=== PATIENT | female | born 1965 | race Caucasian/White ===

== ENCOUNTER 2024-08-11 14:12 | Observation (INO) | payer BC, SELFPAY ==
[2024-08-11] VITALS (14 sets, daily range): BP systolic 108–161; BP diastolic 73–102; BMI 26.3; BMI 26.1
--- NOTE | 2024-08-11 07:58 | ED.GENMED ---
History of Present Illness
General
Chief Complaint: Chest Pain
Source: patient
Exam Limitations: none
Time Seen by Provider: 08/11/24 07:49
Nursing documentation reviewed up to this point in time: agreed with
History of Present Illness
History of Present Illness:
Patient is a 58-year-old female who presented to the ER with abrupt chest pain that started at 430 this morning while sitting on the toilet trying to have bowel movement. Patient complains of pain in the center of her chest worse with taking a deep
breath. She presents diaphoretic very uncomfortable appearing. She denies any radiation of pain. She is nauseous. She does feel short of breath the symptoms she has no past medical history. She vapes. She has no prior DVT PE history.
Sister had MD in her 40s.
She denies any history of reflux.
Past History
Past History
ED Past Medical History: None
ED Past Surgical History: None
Social History
Tobacco: Vaping
Alcohol: None
Drug: None
Personal:
Living: with family
Employment: Employed
Family History
Family History: CAD; Negative Diabetes, Hypertension, Early CAD or Asthma
Review of Systems
Review of Systems
Allergies reviewed?: Yes
All Other Systems: ROS reviewed and negative except as documented in HPI and ROS
Constitutional: Reports no symptoms
Respiratory: Reports trouble breathing
Cardiac: Reports chest pain
ABD/GI: Reports nausea; Denies abdominal pain or vomiting
Musculoskeletal: Reports no symptoms; Denies neck pain or back pain
Skin: Reports no symptoms
Psychiatric: Reports no symptoms
Phy Exam
General Physical Exam
General Presentation: no apparent distress
General age: appears stated age
General Skin: warm and dry
General Habitus: normal
General Mental: alert
General Hydration: appears well hydrated
Neurological Exam
Neurological Exam: alert and oriented x3
Musculoskeletal Exam
Musculoskeletal Exam: full ROM
Skin Exam
Skin Exam: normal color and warm/dry
Psychiatric Exam
Psychiatric Exam: normal mood/affect
Scores
Heart Score for Chest Pain Patients
STEMI patient?: Not applicable
Course
Orders/Labs/Results
Orders:
Orders
08/11/24 07:31
Electrocardiogram (*1) Urgent
Reason for Study: Chest Pain
EKG- Treatment ONCE
08/11/24 07:54
Morphine Sulfate 4 mg .ROUTE .STK-MED ONE
Ondansetron Injectable [Zofran] 4 mg .ROUTE .STK-MED ONE
08/11/24 07:55
CT Chest Angio W/wo Iv Contras Urgent
Comment:
Reason For Exam: abrubt severe cp
IV Insert/Care/Rem.- Treatment PRN
08/11/24 07:57
C-Reactive Protein Urgent
Comment: ADD ON
Complete Blood Count/With Diff Urgent
Comprehensive Metabolic Panel Urgent
Erythrocyte Sed Rate Urgent
Comment: ADD ON
Lipase Urgent
Troponin I Urgent
08/11/24 08:00
0.9% Sodium Chloride 1000 ml [Nss] 1,000 ml IV BOLUS
Morphine Sulfate 4 mg IV NOW STA
08/11/24 08:01
Ondansetron Injectable [Zofran] 4 mg IV NOW STA
08/11/24 08:17
EKG [Electrocardiogram (*1)] Stat
Reason for Study: Bradycardia / Tachycardia
08/11/24 08:18
EKG- Treatment ONCE
08/11/24 08:30
Famotidine [Pepcid] 20 mg IV NOW STA
08/11/24 10:17
Echo 2D MMode Color/Doppler Urgent
Reason for Study: cp
Cardiology Consult: Scheiring, Romi
Mag Hydrox/Al Hydrox/Simeth [Maalox] 30 ml Phenobarb/Hyoscy/Atropine/Scop [] 10 ml PO NOW
08/11/24 10:18
COVID-19 Antigen Urgent
Source: Nasal Swab
Influenza A+B Rapid Molecular Urgent
SHAHZAD Source: Nasal Swab
Specimen Description:
08/11/24 10:36
Mag Hydrox/Al Hydrox/Simeth [Maalox] 30 ml .ROUTE .STK-MED ONE
Phenobarb/Hyoscy/Atropine/Scop [] 10 ml .ROUTE .STK-MED ONE
08/11/24 11:05
Add On- LAB Routine
Tests Added?: ESR, CRP
08/11/24 11:33
Troponin I Routine
Influenza A+B Rapid Molecular Routine
SHAHZAD Source: [facility]
Specimen Description:
08/11/24 11:39
Electrocardiogram (*1) Stat
Reason for Study: Other
Other Reason for Exam: chest pain
EKG- Treatment ONCE
08/11/24 11:51
EKG [Electrocardiogram (*1)] Stat
Reason for Study: Bradycardia / Tachycardia
EKG- Treatment ONCE
08/11/24 12:41
US Abdomen Complete/Upper Urgent
Comment:
Reason For Exam: upper abd /epigastric/chest pain
08/11/24 13:30
HYDROmorphone [Dilaudid] 0.5 mg IV Q4HPRN PRN
Ketorolac [Toradol] 30 mg IV NOW STA
Lorazepam [Ativan] 0.5 mg IV NOW STA
08/11/24 13:35
0.9% Sodium Chloride [Nss (Preservative Free)] 0.25 ml IV NOW STA
08/11/24 13:53
Admit/Transfer Patient As Directed
Co-Sign Provider:
Level of Care: Observation services
Assign to:: Telemetry
Physician / Group: amy castillo
Diagnosis: cp unclear poss viral pericariditis/takusobo/myocarditis
Reason for Telemetry: Chest Pain syndromes
Date to Stop Telemetry: 08/13/24
Time to Stop Telemetry: 11:00
Reason for Hospitalization: cp unclear poss viral pericariditis/takusobo/myocarditis
Code Status As Directed
Resuscitation Status: Full Code
CARDIOLOGY CONSULT Routine
Consulting Provider: Romi Coker
Was physician already notified: Yes
Reason for consult: chest paiin recent uri fever
08/11/24 13:55
PRN Pain Medication Management As Directed
May give lesser potent ordered pain med per pt: Yes
preference::
Protocol:: Medication orders for pain may be administered in a
manner that supports deferring to patient preference
when the pt is:
- Requesting an ordered lesser potent pain medication.
Least to most potent pain medications are defined
as: acetaminophen < NSAID < tramadol < opioids
(morphine, oxycodone, hydromorphone).
- Requesting a lesser dose of the same medication IF
ORDERED.
- Requesting a less intrusive route of administration
if both routes are prescribed by the provider (PO <
IV).
08/11/24 14:11
Influenza A+B Rapid Molecular Urgent
SHAHZAD Source: Nasal Swab
Specimen Description:
08/11/24 18:00
0.9% Sodium Chloride [Nss (Preservative Free)] 0.5 ml IV Q4HPRN PRN
Lorazepam [Ativan] 1 mg IV Q4HPRN PRN
08/11/24 20:00
Ketorolac [Toradol] 30 mg IV Q6HPRN PRN
08/13/24 11:00
DC Protocol for Telemetry ONCE
Abnormal Lab Results
08/11/24
07:57
WBC 11.7 H 10^3/uL
(4.8-10.8)
MCH 31.5 H pg
(27.0-31.0)
Abs Immat Gran (auto) 0.1 H 10^3/uL
(0-0.05)
Absolute Neuts (auto) 8.7 H 10^3/uL
(1.4-6.5)
ESR 35 H mm/hour
(0-20)
Glucose 152 H mg/dl
(70-99)
Calcium 10.3 H mg/dl
(8.4-10.2)
C-Reactive Protein 21.40 H mg/L
(0.0-10.00)
08/11/24 07:57
08/11/24 07:57
Vital Signs
Initial and Last Documented VS:
Initial Vital Signs
Pulse Resp BP Pulse Ox
66 16 126/91 100
08/11/24 07:37 08/11/24 07:37 08/11/24 07:37 08/11/24 07:37
Last Documented Vital Signs
Temp Pulse Resp BP Pulse Ox
97.5 F 48 20 145/75 94
08/11/24 09:55 08/11/24 14:15 08/11/24 14:15 08/11/24 14:00 08/11/24 14:15
Clay Dry Press Helper consulted with Physician
Clay [employer] Press Helper consulted with physician?: Yes
Name of Physician Consulted: Negar
MDM/Problems Addressed
Differential Diagnosis Includes:
Not limited to aortic dissection, ACS, refux gastritis , PE
MDM/Problems Addressed:
As documented patient is a 58-year female who presented with anterior chest discomfort that started at 4: 30 this morning while sitting on the toilet. She presents very uncomfortable diaphoretic. EKG done in triage with no acute ST elevation or
acute findings. Patient's heart rate is in the 60s. On patient's arrival and treatment area was called to room. She is very uncomfortable diaphoretic complains of pain to the anterior chest worse with deep breath. No cardiac history. No family
history of DVT PE aneurysm. IV line was inserted patient was medicated for pain given nausea medicine fluids. ED physician called to bedside. Stat CTA chest ordered.
In review of records pt was here in 2021 for similar episode
CTA negative for dissection or aneurysm. Patient still complains of discomfort but seems a little more comfortable after morphine and Zofran. She still is diaphoretic. She was given Pepcid and still feels pain intermittent. She feels pain is
coming and going. Abdomen soft nontender. neg trop nml lipase nml lfts non tender over ruq
Patient was evaluated by cardiology and bedside echo was done and normal. Patient has had episodes of bradycardia as low as 30 9 running in the 40s. Blood pressure stable. As discussed with cardiology attending will check ultrasound however
patient will require admission for further evaluation . Pt continues with pain and diaphoresis.
Ultrasound negative. Patient mended to the hospital service for further evaluation and workup.
*Radiology
Radiology exam reviewed: radiology read reviewed
*Pulse Oximetry
Patient hypoxic: no
*EKG
Interpreted by ED Provider?: Yes
Interpretation: normal
Heart Rate: 60
Rate: normal
Rhythm: sinus
Ischemia: other (Repeat EKG done shows a heart rate of 45 however no other acute changes)
*Critical Care Note
Total Time (30-74mins, 75-104mins- exclusive of procedures): Not Applicable
Patient Management
Discussion with other providers: Marine Railway Operator (cardiology DR Coker )
ED Attending Note
-
Portions of this chart may have been created with voice recognition software.� Occasional wrong word or��sound alike� substitutions may have occurred due to the inherent limitations of voice recognition software.
Discharge Plan
Departure
Patient Disposition: Admit
Date of Disposition: 08/11/24
Time of Disposition: 12:53
Admit to: Telemetry
Admit to doctor: hospitalist
Presentation/result/management discussed w/ accepting MD/DO: Hospitalist
Condition: Fair
Covid-19: Not Applicable
Discharge Problem:
Chest pain
Interventions
Interventions:
*Risk Screen - Suicide Last Done: 08/11/24 07:39
*General Assessment Last Done: 08/11/24 08:22
*Neglect/Abuse Screening Last Done: 08/11/24 07:39
*ED COVID-19 Vaccine History Last Done: 08/11/24 08:24
*Nursing Disposition Last Done: 08/11/24 15:19
ED- Cardiac Assessment Last Done: 08/11/24 10:30
[2024-08-11 08:09] LABS: Hemoglobin 14.6 g/dL (12.0-16.0); Mean Corp Hgb Conc. 35.6 g/dL (33.0-37.0); Mean Corpuscular Hgb 31.5 pg (27.0-31.0); Mean Corpuscular Volume 88.4 fL (81.0-99.0); Mean Platelet Volume 8.6 fL (7.4-10.4); Platelet Count 331 10^3/uL (130-400); Red Blood Cell Count 4.64 10^6/uL (4.20-5.40); Red Cell Dist. Width 12.3 % (11.5-14.5); White Blood Cell Count 11.7 10^3/uL (4.8-10.8)
[2024-08-11] MEDS: MORPHINE SULFATE 4 MG IV (08:13)
[2024-08-11] MEDS: ZOFRAN 4 MG IV (08:15)
[2024-08-11] MEDS: NSS 1000 IV ×2 (08:15→16:00)
[2024-08-11 08:20] LABS: ALT (SGPT) 12 U/L (0-35); AST (SGOT) 20 U/L (14-36); Albumin 4.8 g/dl (3.5-5.0); Alkaline Phosphatase 108 U/L (38-126); Blood Urea Nitrogen 16 mg/dl (7-17); Calcium 10.3 mg/dl (8.4-10.2); Carbon Dioxide 24 mmol/L (22-30); Chloride 105 mmol/L (98-107); Estimated Creatinine Clearance 76 ml/min; Glucose 152 mg/dl (70-99); Lipase 144 U/L (23-300); Potassium 4.3 mmol/L (3.5-5.1); Sodium 144 mmol/L (135-145); Total Bilirubin 0.4 mg/dl (0.2-1.3); Total Protein 7.9 g/dl (6.3-8.2); eGFR > 60.00
[2024-08-11 08:26] LABS: % Basophils 0.4 % (0-2); % Eosinophils 0.9 % (0-6); % Immature Granulocytes 0.4 % (0-0.5); % Lymphocytes 20.9 % (20.5-51.1); % Monocytes 3.4 % (1.7-9.3); Absolute Basophils 0.1 10^3/uL (0-0.2); Absolute Eosinophils 0.1 10^3/uL (0-0.7); Absolute Immature Granulocytes 0.1 10^3/uL (0-0.05); Absolute Lymphocytes 2.5 10^3/uL (1.2-3.4); Absolute Monocytes 0.4 10^3/uL (0.1-0.6); Absolute Neutrophils 8.7 10^3/uL (1.4-6.5); Nucleated Red Blood Cells % 0 %
[2024-08-11 08:30] LABS: Troponin I < 0.012 ng/ml
[2024-08-11] MEDS: PEPCID 20 MG IV (08:36)
[2024-08-11] MEDS: MAALOX 30 PO (10:39)
[2024-08-11 10:40] LABS: COVID-19 Antigen Negative (Negative)
--- NOTE | 2024-08-11 11:05 | CON.CAR ---
Addendum entered and electronically signed by Romi Coker DO 08/11/24 17:43:
I saw and examined the patient.
The Public Health Epidemiologist's note was reviewed and I agree with the note.
Comment: Patient was seen and examined in ED room 7 with her at bedside. Stephanie is a 58 year old female with PMH of HLD who presented to [facility] for evaluation of chest/epigastric pain. She woke up this AM and was feeling well, however when
she went to have a bowel movement, suddenly developed significant central chest pain with associated nausea, diaphoresis, and SOB. She notes the pain is severe, 7/10 in severity. She previously had an episode similar to this in 2021 with chest pain
and diaphoresis. Workup at that time was benign. She reports she has not had any significant/severe similar symptoms until this AM. In ER, initial troponin negative, EKG SR with sinus arrhythmia. Telemetry is sinus bradycardia in the 40-70s without
high degree AVB or pauses. She was given morphine, pepcid, GI cocktail, and zofran. She reports this has helped calm her down, however has not had any improvement in her pain. She does not take any daily medications. She does note that approximately
1 week ago she had a viral illness and had fevers up to 102F but she was feeling better and denies further fevers or rash. COVID was negative. She is on no prescribed or OTC medications. Also under increased stress at home as her father
last week.
General: Lying on her left side, clammy/diaphoretic and appears on well.
Neck: Negative JVD
Heart: Regular, positive S1/S2, No murmur. No rub. No chest wall ecchymosis or rash
Lungs: CTA b/l, negative wheezes/rales/rhonchi
Abd: Positive BS, NT/ND, neg rebound/rigidity/guarding
Ext: No edema
Neuro: nonfocal
Plan:
Constant epigastric/lower chest pain since around 430 this am that started this morning while trying to have a bowel movement.
-Cardiac troponin negative x 2
-Twelve-lead EKG sinus bradycardia without acute ischemic changes or EKG signs suggesting pericarditis.
-CTA of the chest without acute pathology in the lungs and no pericardial effusion. No PE or aortic pathology.
-2D echocardiogram with normal biventricular size and systolic function and no hemodynamically significant valve pathology. No pericardial effusion
-Lipase and LFTs within normal limits
-Mildly elevated WBC and mildly elevated nonspecific inflammatory markers with reported viral illness negative for COVID last week. COVID assay negative this admission. Influenza assay pending
-Fortunately, workup so far does not support diagnosis of acute coronary syndrome, Takotsubo's, myocarditis or even pericarditis.
-Discussed with the ED to obtain abdominal imaging
-Could try empiric NSAIDs such as Toradol
-Continue to monitor on telemetry
Smoking/vaping history
-Prior cigarette smoker 1.5 pack/day x 33 years quit 2018 and switched to vaping
-Cessation advised
ADHD
-Patient and denied to me that she is on any medication.
-Will need to verify medication dosing regimen
Original Note:
Consultation
Consultation Request
Date/Time Consultation Requested: 08/11/2024
Date/Time Consultation Performed: 08/11/2024 at 1045
Requesting Provider: Ene MARTINEZ
Performing Provider: Bonnie Benoit PA-C for Dr. Coker
Reason for Consultation: Chest pain
Medical History
-
History of Present Illness:
HPI: Stephanie is a 58 year old female with PMH of HLD who presented to [facility] for evaluation of chest pain. She woke up this AM and was feeling well, however when she went to have a bowel movement, suddenly developed significant central chest pain
with associated nausea, diaphoresis, and SOB. She notes the pain is severe, 7/10 in severity. She previously had an episode similar to this in 2021 with chest pain and diaphoresis. Workup at that time was benign. She reports she has not had any
significant/severe similar symptoms until this AM. In ER, initial troponin negative, EKG SR with sinus arrhythmia. HR in the 40s. She was given morphine, pepcid, GI cocktail, and zofran. She reports this has helped calm her down, however has not had
any improvement in her pain. She does not take any daily medications. She does note that approximately 1 week ago she had a viral illness and had fevers up to 102F. Also under increased stress at home as her father last week.
PMH:
Hyperlipidemia
Former tobacco abuse
Family h/o CAD
Past Medical History
Past Medical History: Other (In HPI)
Past Surgical History: Other ([place] tooth extraction)
Social History
Tobacco: Vaping (Former smoker, current vape use)
Alcohol: Occasional (rare)
Personal:
Living: With Family
Employment: Employed
Family History
Family History: Early CAD, Cancer and Diabetes
Allergies / Home Medications
Allergy/AdvReac Type Severity Reaction Status Date / Time
No Known Allergies Allergy Verified 05/29/22 08:36
�Medication �Instructions �Recorded �Confirmed �Type
dextroamphetamine-amphetamine 20 20 mg PO DAILYPRN PRN ADHD symptoms 05/29/22 08/11/24 History
mg tablet (Adderall)
Review of Systems
-
History Source: Patient and Family ( at bedside)
All other systems: Negative unless noted
Physical Exam
Vital Signs
Temp Pulse Resp BP Pulse Ox
97.5 F 47 19 150/94 97
08/11/24 09:55 08/11/24 10:00 08/11/24 10:00 08/11/24 10:00 08/11/24 10:00
Lab Results
08/11/24 07:57
08/11/24 07:57
Troponin I < 0.012 ng/ml 08/11/24 07:57
Physical Exam
General: Well Developed, Well Nourished and Sweats
HEENT: Normocephalic, Anicteric and Moist Mucous Membranes
Respiratory: Clear and Non Labored Respirations
Cardiac: S1/S2 and Regular Rhythm
Musculoskeletal: No Clubbing, No Cyanosis and No Edema
Neuro: AO x 3 and Nonfocal/Grossly Intact
Psych: Calm
Impression / Plan
-
PCP: Dr. Bunch
Engineer Operations And Maintenance: Dr. Francis, last seen 07/2022
Impression:
Presented with chest pain, diaphoresis
Nausea
Hyperlipidemia
Former tobacco abuse
Family h/o CAD
Stress echo 06/22/2022: Normal stress echo with normal hemodynamic response to exercise. Low risk stress test.
Echo 06/09/2022: EF 60-65%, no RWMA, no significant valvular disease
Echo 08/11/2024: Study pending
Plan:
-Presented with central, nonradiating chest discomfort and diaphoresis that started this AM while trying to have a bowel movement.
-Pain has been persistent since that time. No improvement with zofran, morphine, GI cocktail, or pepcid.
-Initial troponin negative. Repeat troponin ordered. Await results.
-Check echo. Prior echo in 2021 with preserved EF and no significant valvular disease.
-Check ESR, CRP. Noted recent viral illness last week w/ temp up to 102F. Afebrile in ER.
-CTA of chest overall unremarkable. No pneumonia, no dissection.
-EKG reviewed, SR with no acute ischemic changes.
-Has been under increased stress w/ her father passing away last week.
-Covid testing negative.
-Prior OP stress testing negative in 2021.
-Further recommendations to be made pending results of echo and labwork.
HPI: Stephanie is a 58 year old female with PMH of HLD who presented to [facility] for evaluation of chest pain. She woke up this AM and was feeling well, however when she went to have a bowel movement, suddenly developed significant central chest pain
with associated nausea, diaphoresis, and SOB. She notes the pain is severe, 7/10 in severity. She previously had an episode similar to this in 2021 with chest pain and diaphoresis. Workup at that time was benign. She reports she has not had any
significant/severe similar symptoms until this AM. In ER, initial troponin negative, EKG SR with sinus arrhythmia. HR in the 40s. She was given morphine, pepcid, GI cocktail, and zofran. She reports this has helped calm her down, however has not had
any improvement in her pain. She does not take any daily medications. She does note that approximately 1 week ago she had a viral illness and had fevers up to 102F. Also under increased stress at home as her father last week.
Data Reviewed
-
EKG: Tracing Personally Visualized and interpreted
CT Scan: Report Reviewed by me
Labs: Labs Reviewed by me
Old Records: Reviewed
[2024-08-11 11:57] LABS: Erythrocyte Sed Rate 35 mm/hour (0-20)
[2024-08-11 12:17] LABS: Troponin I < 0.012 ng/ml
--- NOTE | 2024-08-11 13:01 | HPS.HSE ---
Addendum entered and electronically signed by JUAN Holcomb 08/11/24 14:31:
Pt reports Cp went from 04/16 to 12/15 after Iv toradol and Iv ativan . It also improved with moving and taking a deep breath
Original Note:
Family Physician
-
Family Physician: NOT KNOW UNKNOWN - PT DOES
Chief Complaint
-
Right midsternal chest pain with diaphoresis, prior URI with temp
History of Present Illness
58-year-old female complaining of midsternal chest pain at 4:30 AM while sitting on the toilet trying to have a bowel movement.. She reports she normally has a bowel movement every day that is long and thin but had not had a bowel movement in the
past few days like her normal. She does report several times a week after having a bowel movement she feels this midsternal chest pain along with diaphoresis but it typically resolves. Today she came to the ER because symptoms were persisting. She
reports the pain worsens with taking a deep breath and moving. She was diaphoretic in the ER along with nauseous. She does report having a fever several days ago at home from 08/07 to 08/08/2024 with peak temperature of 102F also associated with
bodyaches, sore throat and vomiting a few times. She reports prior 3 weeks ago sinus congestion, runny nose, sneezing which progressed to the fever and bodyaches. She also reports chronic anxiety for which she has not treated she reports recently
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 She also lost her father last week. She does report similar episodes in May 2022, although does not recall any major life events or stressors at that time. She had a negative
COVID test here unable to test for flu and viral panel due to multiple attempts in ER. She denies current fever, chills, sore throat, headache, shortness breath, vomiting, diarrhea, urinary symptoms, sick contacts, no joint pain or swelling.. She
had stat CTA that was negative for dissection. She was given morphine, GI cocktail and Pepcid which did not help the chest pain. She was noted to be bradycardic with heart rate as low as 39 bpm. She had similar episode of chest pain in 2021 with
negative echo by cardiology [facility]. She has past medical history of nicotine vaping, cigarette smoker 1.5 pack/day x 33 years quit in 2018 and switched to vaping, reported anxiety not officially diagnosed, chronic right lower lobe pulmonary nodule 4.[address] chest from 05/10/2022, chronic bradycardia, colonic benign polyps via colonoscopy, diverticulosis sigmoid colon
Medical History
Past Medical History
Past Medical History: Reports Other
Additional Past Medical History:
nicotine vaping,
cigarette smoker 1.5 pack/day x 33 years quit in 2018 and switched to vaping
reported anxiety not officially diagnosed
chronic right lower lobe pulmonary nodule 4.5 mm , and 3 mm subpleural nodule anterior right upper lobe on CT chest from 05/10/2022
chronic bradycardia
colonic benign polyps via colonoscopy February 2022
Colonoscopy with diverticulosis sigmoid colon February 2022
Past Surgical History: Reports Other
Additional Past Surgical History:
colonic benign polyps via colonoscopy February 2022
Colonoscopy with diverticulosis sigmoid colon February 2022
Social History
Tobacco: Vaping
Alcohol: None
Drug: None
Personal:
Living: With Family ( Aditya)
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
Family History
Family History: Early CAD (Sister [facility] age 40s)
Allergies / Home Medications
Allergies reflects when Allergies were last updated in [facility].
Home Medications with original date entered in [facility]
Allergy/Medication List:
Allergies
Allergy/AdvReac Type Severity Reaction Status Date / Time
No Known Allergies Allergy Verified 05/29/22 08:36
Home Medications
dextroamphetamine-amphetamine 20 mg tablet (Adderall) 20 mg PO DAILYPRN PRN ADHD symptoms 05/29/22
Review of Systems
-
History Source: Patient and Family (Aditya)
A 12 point ROS was completed and negative except as noted: Yes
Constitutional: Denies Fever, Weight Loss, Fatigue or Chills
EENT: Denies Sore Throat or Runny Nose
Respiratory: Reports Cough (Chronic); Denies Hemoptysis or Trouble Breathing
Cardiac: Reports Chest Pain (Right midsternal) and Diaphoresis; Denies Palpitations or Syncope
Abdomen/GI: Reports Nausea and Constipated (Had constipation last 30 days did have small bowel movement this a.m. 08/11/2024); Denies Abdominal Pain, Vomiting or Diarrhea
: Denies Dysuria, Frequency, Flank Pain, Incontinence, Difficulty Voiding or Urgency
Musculoskeletal: Denies Joint Pain, Joint Swelling, Muscle Pain or Edema
Skin: Denies Itching or Rash
Neurological: Denies Dizzy, Headache or Weakness
Endocrine: Reports No Symptoms
Hematologic/Lymphatic: Reports No Symptoms
Psych: Reports Anxiety
Physical Exam
Vital Signs
Vital Signs
Temp Pulse Resp BP Pulse Ox
97.5 F 41 16 161/91 99
08/11/24 09:55 08/11/24 12:00 08/11/24 12:00 08/11/24 12:00 08/11/24 12:00
Physical Exam
General: Conversant, Pain and Other (Diaphoretic); No Fever, Chills or Slurred Speech
HEENT: NormoCephalic, Anicteric, Moist mucous membranes, PERRLA, [place] Conjunctivae, No Ptosis and Neck Nontender; No Pharyngeal Erythema
Respiratory: Wheezes (Bilateral upper lung renteria); No Rales, Rhonchi or Crackles
Cardiac: S1/S2 and Bradycardia; No Murmur, Rub, Gallop, Peripheral Edema, Calf Tenderness, JVD or Carotid Bruits
Breast: Deferred by me
GI: Soft, Non Tender, Non Distended, Normal Bowel Sounds, No Hepatosplenomegaly and No Hernias
Rectal: Deferred by Provider
Genito-urinary: Deferred by me
Musculoskeletal: No Clubbing, No Cyanosis and No Edema
Skin: Warm and Other (Diaphoretic); No Rash or Jaundice
Neuro: AO x 3 (Appears anxious), No Motor Deficits, Nonfocal/grossly intact, Cranial Nerves Intact and No Sensory Deficits; No Slurred Speech, Facial Droop, Tremors or Sedated
Psych: Anxious
Laboratory Results
-
08/11/24 07:57
08/11/24 07:57
Laboratory Results
Total Bilirubin 0.4 mg/dl (0.2-1.3) 08/11/24 07:57
AST 20 U/L (14-36) 08/11/24 07:57
ALT 12 U/L (0-35) 08/11/24 07:57
Alkaline Phosphatase 108 U/L (38-126) 08/11/24 07:57
Troponin I < 0.012 ng/ml 08/11/24 11:33
Lipase 144 U/L (23-300) 08/11/24 07:57
Impression/Plan
-
Impression/plan:
Observation telemetry
#Chest pain unclear etiology concern for possible Viral myocarditis/Pericarditis/Takotsubo cardiomyopathy
Had viral URI 1 week ago with fevers peak 102 from 08/07 - 08/08/2024.
-Recent stress her father 1 week ago
-COVID-negative
-we will repeat flu swab as prior to work coming up and valid
-Will check possible RSV pending ID recommendation
Troponin x 2 levels <0.012
-ESR elevated 35, CRP elevated 21.4
-IV Toradol 30 mg every 6 hours as needed pain,Tylenol prn, Dilaudid as needed
-Consult [facility]ology
2D echo 08/11/2024: EF 60 to 65%, no wall abnormalities, no valvular disease.
EKG: Sinus bradycardia 57 bpm QTc 439 MS no significant change from earlier today
#Acute on chronic anxiety
-Will give IV Ativan now and as needed
-I discussed with patient to follow-up with PCP regarding her daily chronic anxiety
#Bradycardia known
Heart rate 39 bpm - 57 bpm
-Per vitals 05/29/2022 heart rate was 51-56 bpm
#Right lower lobe pulmonary nodule 4.5 mm and 3 mm subpleural nodule anterior right upper lobe on CT chest was found on 05/10/2022
-Today CT chest reports unchanged from prior exam in 2021
-Patient did follow-up with pulmonary
#Nicotine vape use daily
#Prior cigarette smoker 1.5 pack/day x 33 years quit 2017 and switched to vaping
-Cessation advised
#ADHD
Patient on Adderall 20 mg daily as needed
#Diverticulosis sigmoid colon on colonoscopy 02/07/2021
Benign colonic polyps via colonoscopy 2020
DVT prophylaxis
-Subcu heparin
Full code
[2024-08-11] MEDS: ATIVAN 0.5 MG IV (14:02)
[2024-08-11] MEDS: TORADOL 30 MG IV (14:02)
[2024-08-11] MEDS: NSS (PRESERVATIVE FREE) 0.25 ML IV (14:03)
--- NOTE | 2024-08-11 14:15 | W.PN.UPDATE ---
Update Note
Progress Note Update
This is an addendum to the H&P written by Sherrell Rose on 08/11/2024.� Patient seen and examined independently with [employer].
58-year-old female past medical history of known bradycardia, hyperlipidemia, presenting for severe substernal sharp chest pain with pleuritic component associate with nausea, diaphoresis and shortness of breath.� 1 week ago she had URI with fever
up to 102 with resolving symptoms.� Father last week.� Patient has chest pain like this since 2021 often few times a week.
Initial troponin negative.� EKG shows sinus bradycardia.� CT angio of chest shows no evidence of aortic dissection or aneurysm.� Labs show leukocytosis.� Echo shows normal findings.� COVID-negative.� Flu attempted to be checked 3 times but results
invalid.� CRP elevated at 21.
Unclear etiology of chest pain.� Unstable angina possible however EKG showing sinus bradycardia without any ischemic changes.� Given elevated inflammatory markers, recent URI last week acute pericarditis/Takotsubo cardiomyopathy can be considered
however echo unremarkable.� Sweating but afebrile.� There appears to be psychosomatic component of pain.
Toradol, Dilaudid for pain.� Ativan for anxiety.� Cardiology following.� Will contact lab to see if influenza can be rechecked.
--- NOTE | 2024-08-11 16:39 | PTCARENOTE ---
Pt brought to room 406-1 from ED. Pt able to ambulate from stretcher into bed w/o issue. Pt arrived on 2L oxygen, but found to be 99% room air so O2 discontinued. Pt cooperative but disinterested in discussing plan of care, barely answering
admission questions, just wants to sleep. She reports mild substernal discomfort (2/10) at this time.
--- NOTE | 2024-08-11 17:50 | PTCARENOTE ---
Pt woke from sleep and vomited x 1 watery emesis. Pt reports feeling much better after vomiting. Chest pain resolved. Pt is now much more awake/alert/talkative.
[2024-08-12 03:32] VITALS: BP 118/71
[2024-08-12] MEDS: NSS 1000 IV (07:27)
[2024-08-12 07:28] LABS: % Basophils 0.4 % (0-2); % Eosinophils 0.8 % (0-6); % Immature Granulocytes 0.5 % (0-0.5); % Lymphocytes 25.2 % (20.5-51.1); % Monocytes 8.1 % (1.7-9.3); Absolute Eosinophils 0.1 10^3/uL (0-0.7); Absolute Immature Granulocytes 0.1 10^3/uL (0-0.05); Absolute Lymphocytes 2.3 10^3/uL (1.2-3.4); Absolute Monocytes 0.7 10^3/uL (0.1-0.6); Absolute Neutrophils 5.9 10^3/uL (1.4-6.5); Hematocrit 35.4 % (37.0-47.0); Hemoglobin 12.6 g/dL (12.0-16.0); Mean Corp Hgb Conc. 35.6 g/dL (33.0-37.0); Mean Platelet Volume 8.9 fL (7.4-10.4); Nucleated Red Blood Cells % 0 %; Platelet Count 327 10^3/uL (130-400); Red Blood Cell Count 4.07 10^6/uL (4.20-5.40); Red Cell Dist. Width 12.5 % (11.5-14.5); White Blood Cell Count 9.1 10^3/uL (4.8-10.8)
[2024-08-12 07:31] VITALS: BP 128/82
[2024-08-12 07:36] LABS: ALT (SGPT) 11 U/L (0-35); AST (SGOT) 17 U/L (14-36); Albumin 3.9 g/dl (3.5-5.0); Alkaline Phosphatase 74 U/L (38-126); Blood Urea Nitrogen 15 mg/dl (7-17); Calcium 9.3 mg/dl (8.4-10.2); Carbon Dioxide 28 mmol/L (22-30); Chloride 104 mmol/L (98-107); Estimated Creatinine Clearance 76 ml/min; Glucose 99 mg/dl (70-99); HDL Cholesterol 50 mg/dl; LDL Cholesterol, Calculated 155 mg/dl; Potassium 4.1 mmol/L (3.5-5.1); Sodium 144 mmol/L (135-145); Total Bilirubin 0.2 mg/dl (0.2-1.3); Total Cholesterol 234 mg/dl (50-199); Total Protein 6.5 g/dl (6.3-8.2); Triglyceride 146 mg/dl (10-149); Very Low Density Lipoprotein 29 mg/dl (0-30); eGFR > 60.00
[2024-08-12] MEDS: PEPCID 20 MG PO (08:03)
--- NOTE | 2024-08-12 09:49 | W.PN.HOSP.TC ---
Addendum entered and electronically signed by Nivia Song MD 08/12/24 13:58:
VTE workup revealed small R PE - dc on Eliquis. OP hematology evaluation as not clearly a provoked PE.
Original Note:
Today's Communication/Plan
-
VTE workup
follow Cards recs
continue empiric PPI and pain control
Assessment / Plan
Assessment / Plan
Assessment:
Central chest pain
Known sinus bradycardia
- CT-A negative for aortic pathology, no evaluate for PE. Will obtain CT-PE study and also Dopplers
- trop x 2 negative. Echo unremarkable. No EKG evidence of ischemic or acute pericarditis
- recent viral URI - resolved. No evidence of PNA on CT. COVID/Flu negative
- Recent stressor of father passing away, could have anxiety component.
- LFTs and US unremarkable. ? Gastritis vs heartburn related?. continue empiric H2 darrick if VTE workup negative. OP GI referral.
- continue Toradol/prn pain control
Acute anxiety on chronic anxiety
- Recent stressor of father passing away, could have anxiety component.
- prn Ativan
- PCP f/u
Right lower lobe pulmonary nodule 4.5 mm and 3 mm subpleural nodule anterior right upper lobe on CT chest was found on 05/10/2022
- Today CT chest reports unchanged from prior exam in 2021
- Patient did follow-up with pulmonary
Nicotine vape use daily
Prior cigarette smoker 1.5 pack/day x 33 years quit 2017 and switched to vaping
- cessation advised
ADHD
- patient on Adderall 20 mg daily as needed
Diverticulosis sigmoid colon on colonoscopy 02/07/2021
Benign colonic polyps via colonoscopy 2020
DVT prophylaxis: SC heparin
Code: Full
Anticipated Discharge: Within 24 hours
Subjective/Interval History
-
Date of Service: August 12, 2024
chest pain stable to improving
no fevers/SOB
Objective Data
-
Labs:
Laboratory Results
08/12/24
06:39
WBC 9.1
Hgb 12.6
Hct 35.4 L
Plt Count 327
Sodium 144
Potassium 4.1
Chloride 104
Carbon Dioxide 28
BUN 15
Creatinine 0.8
Glucose 99
Calcium 9.3
Total Bilirubin 0.2
AST 17
ALT 11
Alkaline Phosphatase 74
Vital Signs:
Vital Signs
Temp Pulse Resp BP Pulse Ox
98.1 F 75 20 128/82 96
08/12/24 07:31 08/12/24 07:31 08/12/24 07:31 08/12/24 07:31 08/12/24 07:31
I&O
08/11/24 08/12/24 08/13/24
06:59 06:59 06:59
Intake Total 0 / 0
Output Total 100 / 100
Balance -100 / -100
Physical Exam
-
General: No Apparent Distress
HEENT: Normocephalic and Atraumatic
Respiratory: Negative Wheezes
Cardiac: Regular Rhythm and S1/S2
GI: Soft and Nontender
Genito-urinary: No Costovertebral Tender
Musculoskeletal: No Edema
Neuro: AO x 3
Hematologic / Lymphatic: No Lymphadenopathy
Psych: Calm
Data Reviewed
-
Total Time Spent with Patient (in minutes): 42
Labs: Labs Reviewed by me
--- NOTE | 2024-08-12 10:44 | W.PN.CARDCBS ---
Addendum entered and electronically signed by Binh Vazquez MD 08/12/24 15:24:
I saw and examined the patient.
The Weatherization Specialist's note was reviewed and I agree with the note.
Comment: Briefly, 58-year-old woman presenting with presyncope and diaphoresis which occurred while seated on the commode
Patient tells me she has had multiple prior episodes over the last year or so
Maintaining sinus rhythm on telemetry here
ECG is not overtly ischemic
Transthoracic echocardiogram with normal biventricular function and no significant valvular pathology
Explained to her that presentation could be consistent with vasovagal mechanism
After my evaluation she underwent CTA and was found to have small pulmonary embolism, it is possible that this is contributing to her symptoms
Would consider eventual stress test, for now we will hold off given new diagnosis of PE, can be discussed further as an outpatient
Outpatient cardiology follow-up has been arranged
Addendum entered and electronically signed by Geri Luciano PA-C 08/12/24 13:46:
patient found to have evidence of small R PE. treatment per primary service. will postpone repeat stress test and can reeval need for this in OP setting.
Original Note:
Today's Communication / Plan
-
cardiac work up unrevealing thus far
arranged for OP stress echo and cardiac follow up
pending results of testing today, for possible DC
Impression / Plan
-
PCP: Dr. Bunch
Larriman Helper: Dr. Francis, last seen 07/2022
Impression:
Presented with chest pain, diaphoresis
Nausea
Hyperlipidemia
Former tobacco abuse
Family h/o CAD
Stress echo 06/22/2022: Normal stress echo with normal hemodynamic response to exercise. Low risk stress test.
Echo 06/09/2022: EF 60-65%, no RWMA, no significant valvular disease
Echo 08/11/2024: EF 60 to 65%, no regional wall motion abnormalities noted, no significant valvular disease
Plan:
-Presented with central, nonradiating chest discomfort and diaphoresis that started while trying to have a bowel movement. She has had this in past (always while sitting on toilet) with negative work up. denies straining
-No improvement with zofran, morphine, GI cocktail, or pepcid. had some improvement with combo of IV toradol and IV ativan.
-currently without discomfort
-workup thus far has been unrevealing
-EKG SR/SB
-review of tele SR, occasional sinus arrhythmia
-trops negative x2
-abd US negative for acute pathology
-chest CT negative for dissection or aneurysm. for chest CTA to r/o PE and LE dopplers
-echo with results as above, reviewed with patient today
-recent viral illness with fever to 102F. covid/flu negative.
-father last week, component of anxiety/stress
-ESR/CRP elevated
-denies CP, SOB above baseline prior to admission. last stress echo from 2021 as above. scheduled for stress echo 08/19/24.
-OP cardiac follow up arranged. could consider for OP cardiac monitoring
-d/w hospitalist. for possible DC later today if testing today unrevealing
-discussed vaping cessation
HPI: Stephanie is a 58 year old female with PMH of HLD who presented to [facility] for evaluation of chest pain. She woke up this AM and was feeling well, however when she went to have a bowel movement, suddenly developed significant central chest pain
with associated nausea, diaphoresis, and SOB. She notes the pain is severe, 7/10 in severity. She previously had an episode similar to this in 2021 with chest pain and diaphoresis. Workup at that time was benign. She reports she has not had any
significant/severe similar symptoms until this AM. In ER, initial troponin negative, EKG SR with sinus arrhythmia. HR in the 40s. She was given morphine, pepcid, GI cocktail, and zofran. She reports this has helped calm her down, however has not had
any improvement in her pain. She does not take any daily medications. She does note that approximately 1 week ago she had a viral illness and had fevers up to 102F. Also under increased stress at home as her father last week.
Progress Note - Larriman Helper
Subjective
Date of Service: August 12, 2024
no recurrence of symptoms
Objective
Labs:
08/12/24 06:39
08/12/24 06:39
Labs
Hgb 12.6 g/dL (12.0-16.0) 08/12/24 06:39
Hct 35.4 % (37.0-47.0) L 08/12/24 06:39
Plt Count 327 10^3/uL (130-400) 08/12/24 06:39
Sodium 144 mmol/L (135-145) 08/12/24 06:39
Potassium 4.1 mmol/L (3.5-5.1) 08/12/24 06:39
BUN 15 mg/dl (7-17) 08/12/24 06:39
Creatinine 0.8 mg/dL (0.6-1.0) 08/12/24 06:39
Glucose 99 mg/dl (70-99) 08/12/24 06:39
Troponins
08/11/24 08/11/24
07:57 11:33
Troponin I < 0.012 < 0.012
Vital Signs and I&O:
Vital Signs
Temp Pulse Resp BP Pulse Ox
98.1 F 75 20 128/82 96
08/12/24 07:31 08/12/24 07:31 08/12/24 07:31 08/12/24 07:31 08/12/24 07:31
Vital Signs
Temp Pulse Resp BP Pulse Ox
98.1 F 75 20 128/82 96
08/12/24 07:31 08/12/24 07:31 08/12/24 07:31 08/12/24 07:31 08/12/24 07:31
Intake & Output
08/10/24 08/11/24 08/12/24 08/13/24
07:59 07:59 07:59 07:59
Intake Total 0 / 0
Output Total 100 / 100
Balance -100 / -100
Physical Exam
Physical Exam
GEN: No distress, awake, alert, oriented x3
HEENT: supple, anicteric, mmm, eomi
LUNGS: wheezes L>R
CV: Reg, S1/S2, no murmur
ABD: soft, BS+, NT/ND
EXT: No cyanosis, clubbing, edema
NEURO: Gross non-focal
SKIN: Warm, pink, dry. No rash
[2024-08-12 11:45] VITALS: BP 139/79
[2024-08-12 12:35] LABS: TSH Reflex To Free T4 0.21 uIU/ml (0.47-4.68)
[2024-08-12 13:04] LABS: Free T4 0.89 ng/dl (0.78-2.19)
[2024-08-12] MEDS: ELIQUIS 10 MG PO (13:39)
--- NOTE | 2024-08-12 14:00 | W.DS.TRANS ---
DC Summary - [employer]
-
Discharge Instructions:
Discharge Diagnosis/Procedures small R PE lung blood clot
Diet Regular
Activity As tolerated
Instructions:
Stand-Alone Forms:
Changes to Home Medications: No
Discharge Medications:
DC Medications w/original date entered in [facility]
dextroamphetamine-amphetamine 20 mg tablet (Adderall) 20 mg PO DAILYPRN PRN ADHD symptoms 05/29/22
apixaban 5 mg tablet (Eliquis) See Rx Instructions .Route .COMPLEX #74 tabs 08/12/24
Home Medication Changes
Pending Results: No
Total time spent discharging patient (in min): 41
--- NOTE | 2024-08-12 14:19 | PTCARENOTE ---
Reviewed discharge instructions with patient and . Both verbalize understanding of all instructions including Eloquis teaching and side effects. Deny questions at this time. Two peripheral lines and tele removed. Patient left ambulatory
(refused wheelchair) with .
--- NOTE | 2024-08-12 14:25 | CM ---
CM met with Stephanie and her at bedside to complete IA. They live with their 2 dogs in a 2 story home with no entry steps, 5 steps to the second level.
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
Plan: Discharge to home with no needs.
CM provided EliPiiku copay cards (initial free and another for ongoing use).
PCP: Pt would not divulge
Pharmacy: [facility] on [address] [facility] in [place]
== END 2024-08-12 14:43 | disposition home or self-care (01) ==
LOC: 4 EAST ACU 14:12
PROVIDERS: Clinical Nurse Specialist Family Health; Nurse Practitioner; Physician Assistant; ADMITTING PHYSICIAN Hospitalist; ATTENDING PHYSICIAN Internal Medicine; CONSULT PHYSICIAN Internal Medicine Cardiovascular Disease; EMERGENCY PHYSICIAN Emergency Medicine
DX: I26.99 Other pulmonary embolism without acute cor pulmonale (principal); R07.89 Other chest pain; F17.290 Nicotine dependence, other tobacco product, uncomplicated; I49.1 Atrial premature depolarization; R00.1 Bradycardia, unspecified; E78.5 Hyperlipidemia, unspecified; F90.9 Attention-deficit hyperactivity disorder, unspecified type; R07.2 Precordial pain; R61 Generalized hyperhidrosis; R11.0 Nausea; F41.9 Anxiety disorder, unspecified; R91.1 Solitary pulmonary nodule; K57.30 Diverticulosis of large intestine without perforation or abscess without bleeding; K44.9 Diaphragmatic hernia without obstruction or gangrene; R91.8 Other nonspecific abnormal finding of lung field; R55 Syncope and collapse; Z86.0100 Personal history of colon polyps, unspecified; Z63.4 Disappearance and death of family member; Z83.3 Family history of diabetes mellitus; Z82.49 Family history of ischemic heart disease and other diseases of the circulatory system; Z11.52 Encounter for screening for COVID-19
CPT/HCPCS: 71275; 76700; 80053; 80061; 83690; 84439; 84443; 84484; 85025; 85652; 86140; 87502; 87811; 93005; 93306; 93970; 96361; 96374; 96375; 99285; G0378; Q9967